=== PATIENT | male | born 1995 | race Two or more races ===

== ENCOUNTER 2022-01-22 09:53 | Emergency (ER) | payer MEDICAID ==
[~2022-01-22] VITALS: Ht 177.8 cm; Wt 100.9 kg
[2022-01-22 10:25] VITALS: BP 129/74
[2022-01-22 10:57] LABS: Basophils # (auto) 0 10 ^3/uL (0-0.2); Eosinophils # (auto) 0.1 10 ^3/uL (0-0.8); Eosinophils % (auto) 1.5 % (0.0-7.0); Hemoglobin 13.3 g/dL (13.5-17.5); Lymphocytes # (auto) 2.2 10 ^3/uL (0.4-5.4); Neutrophils # (auto) 2.9 10 ^3/uL (1.6-8.6); White Blood Cell 5.5 10^3/uL (4.4-10.8)
[2022-01-22 11:01] LABS: Basophils % (auto) 0.4 % (0.0-2.0); Hematocrit 41.2 % (41.0-53.0); Lymphocytes % (auto) 39.4 % (10.0-50.0); Mean Corpuscular Hemoglobin 24.9 pg (28.0-32.0); Mean Corpuscular Hgb Conc. 32.3 g/dL (32.0-36.0); Mean Corpuscular Volume 77.1 fL (80.0-100.0); Monocytes # (auto) 0.4 10 ^3/uL (0-1.3); Monocytes % (auto) 7.2 % (0.0-12.0); Neutrophils % (auto) 51.5 % (37.0-80.0); Nucleated Red Blood Cells % 0.1 %; Red Blood Cells 5.35 10^6/uL (4.5-5.90); Red Cell Distribution Width 14.4 % (11.8-14.3)
[2022-01-22 11:16] LABS: Partial Thromboplastin Time 31.3 sec (24.6-33.4)
[2022-01-22 11:39] LABS: Albumin 4.2 g/dL (3.4-5.0); BUN/Creatinine Ratio 9.4; Bilirubin, Total 0.5 mg/dL (0.2-1.0); Calcium 9.5 mg/dL (8.5-10.1); Potassium 4.1 mmol/L (3.5-5.1); Total Protein 7.8 g/dL (6.4-8.2)
== END 2022-01-22 14:20 | disposition left against medical advice (07) ==
LOC: ER 09:56
DX: K92.2 Gastrointestinal hemorrhage, unspecified (principal); F12.10 Cannabis abuse, uncomplicated; Z53.29 Procedure and treatment not carried out because of patient's decision for other reasons
CPT/HCPCS: 36415; 74176; 80053; 85025; 85610; 85730; 93005